=== PATIENT | male | born 1950 | race Caucasian/White ===

== ENCOUNTER → 2019-01-14 20:00 | Outpatient (CLI) | payer MEDICARE, OTHER, SELFPAY ==
[2019-01-12 10:04] VITALS: BMI 37.8
== END ==
PROVIDERS: PCP Family Medicine; Visit Provider Internal Medicine Critical Care Medicine
DX: G47.10 Hypersomnia, unspecified (principal)
CPT/HCPCS: 95810

== ENCOUNTER → 2019-02-18 20:34 | Outpatient (CLI) | payer MEDICARE, OTHER, SELFPAY ==
[2019-01-12 10:04] VITALS: BMI 37.8
== END ==
PROVIDERS: Family Provider Family Medicine; PCP Family Medicine; Referring Provider Internal Medicine Critical Care Medicine; Visit Provider Internal Medicine Critical Care Medicine
DX: G47.33 Obstructive sleep apnea (adult) (pediatric) (principal)
CPT/HCPCS: 95811